=== PATIENT | female | born 1985 | race Caucasian/White ===

== ENCOUNTER → 2018-06-22 14:23 | Emergency (ER) | payer BC ==
--- NOTE | 2018-06-22 15:20 | ED ---
Back Pain - HPI Summary HPI Summary: Patient is a 33-year-old female presenting to the ED with left buttocks pain radiating down the posterior leg into the foot. She denies any weakness to the foot. Symptoms have been present times a proximal 0.1 0.5 weeks and has been intermittent. Symptoms are worse with standing, better with sitting or walking. She denies any bladder or bowel dysfunction. She denies any fevers, sweats, chills or IV drug use. She denies any abdominal pain at this time. She states she feels otherwise well. Pain is currently rated a 7/10 and is a "burning" sensation. She states she feels shocks go down her posterior leg. She denies any groin pain. She denies any urinary symptoms. - History of Current Complaint Chief Complaint: EDBackInjuryPain Stated Complaint: LOWER BACK/LEG PAIN Time Seen by Provider: 06/22/18 14:35 Hx Obtained From: Patient Onset/Duration: Sudden Onset Onset/Duration: Started Weeks Ago Timing: Constant Back Pain Location: Is Discrete @ - left sided buttocks pain radiating to the L posterior leg Severity Initially: Moderate Severity Currently: Moderate Pain Intensity: 9 Pain Scale Used: 0-10 Numeric Character: Aching Aggravating Symptom(s): Movement Alleviating Symptom(s): Rest, Position Associated Signs And Symptoms: Positive: Negative. Negative: Swelling, Redness , Bruising - Risk Factors AAA Risk Factors: Negative TAD Risk Factors: Negative Cauda Equina Risk Factors: Negative Epidural Abscess Risk Factors: Negative - Allergies/Home Medications Allergies/Adverse Reactions: Allergies Allergy/AdvReac Type Severity Reaction Status Date / Time Sulfa (Sulfonamide Allergy Hives Verified 06/22/18 14:32 Antibiotics) Home Medications: Home Medications Quetiapine Fumarate [Seroquel 50 mg tab] 50 mg PO BEDTIME 06/22/18 [History Confirmed 06/22/18] clonazePAM [Clonazepam] 1 mg PO TID PRN 06/22/18 [History Confirmed 06/22/18] PMH/Surg Hx/FS Hx/Imm Hx Previously Healthy: Yes - Immunization History Hx Pertussis Vaccination: No Immunizations Up to Date: Yes Infectious Disease History: No Infectious Disease History: Denies: Traveled Outside the [place] in Last 30 Days - Social History Occupation: Employed Full-time Lives: With Family Alcohol Use: None Hx Substance Use: Yes Substance Use Type: Reports: Marijuana Hx Tobacco Use: No Smoking Status (MU): Never Smoked Tobacco Review of Systems Constitutional: Negative Negative: Fever, Chills, Fatigue, Skin Diaphoresis Negative: Dental Pain Negative: Palpitations, Chest Pain Negative: Abdominal Pain, Vomiting, Diarrhea Genitourinary: Negative Positive: no symptoms reported, see HPI Negative: Decreased ROM, Edema, Other - pain to the left buttocks Skin: Negative Neurological: Other - pain to the left buttocks radiating down the left leg into the foot Negative: Weakness, Paresthesia, Numbness All Other Systems Reviewed And Are Negative: Yes Physical Exam Triage Information Reviewed: Yes Vital Signs On Initial Exam: Initial Vitals Temp Pulse Resp BP Pulse Ox 98.8 F 121 16 140/97 99 06/22/18 14:28 06/22/18 14:28 06/22/18 14:28 06/22/18 14:28 06/22/18 14:28 Vital Signs Reviewed: Yes Appearance: Positive: Well-Appearing, Well-Nourished Skin: Positive: Warm, Skin Color Reflects Adequate Perfusion Head/Face: Positive: Normal Head/Face Inspection Eyes: Positive: EOMI, Conjunctiva Clear Neck: Positive: Supple, No Lymphadenopathy Respiratory/Lung Sounds: Positive: Clear to Auscultation, Breath Sounds Present Cardiovascular: Positive: RRR, Pulses are Symmetrical in both Upper and Lower Extremities Musculoskeletal: Positive: Pain @ - Left buttocks pain radiating down to the left posterior leg Neurological: Positive: Sensory/Motor Intact, Alert, Oriented to Person Place, Time, Normal Gait, Speech Normal Psychiatric: Positive: Normal, Affect/Mood Appropriate AVPU Assessment: Alert Diagnostics - Vital Signs Vital Signs Temp Pulse Resp BP Pulse Ox 06/22/18 14:28 98.8 F 121 16 140/97 99 - Laboratory Lab Statement: Any lab studies that have been ordered have been reviewed, and results considered in the medical decision making process. Back Pain Course/Dx - Course Course Of Treatment: During this course of treatment, the patient is evaluated for left-sided buttocks pain which is radiating down the posterior leg into the foot. This is remained intermittent 1.5 weeks until the past 2 days which has remained constant. She's been taking Tylenol and ibuprofen without relief. She is having pain directly over the sciatic notch, this is better with massage and worse with standing straight. Better with sitting. She denies any bladder or bowel dysfunction. She denies any urinary symptoms otherwise. Denies any abdominal pain. She denies any fevers. At this time she'll be prescribed prednisone, Flexeril, tramadol and is encouraged to continue to take Tylenol and ibuprofen for discomfort. She understands not to take the Flexeril or the tramadol simultaneously. She is also given information on gentle stretches. She is given a note for work. She is diagnosed with sciatica. - Diagnoses Differential Diagnosis/HQI/PQRI: Positive: Other - piriformis syndrome, lumbar radiculopathy, buttocks pain Provider Diagnoses: Sciatica Discharge - Sign-Out/Discharge Documenting (check all that apply): Patient Departure Patient Received Moderate/Deep Sedation with Procedure: No - Discharge Plan Condition: Stable Disposition: HOME Prescriptions: Cyclobenzaprine TAB* [Flexeril TAB*] 10 mg PO BID PRN #10 tab PRN Reason: Spasms predniSONE TAB* [Deltasone TAB*] 50 mg PO DAILY #5 tab MDD 1 traMADol TAB* [Ultram*] 50 mg PO Q8H PRN #15 tab MDD 3 PRN Reason: Pain Patient Education Materials: Sciatica (ED), Lumbar Radiculopathy (ED), Lower Back Exercises (ED) Forms: *Work Release Referrals: No Primary Care Phys,NOPCP [Primary Care Provider] - Additional Instructions: Prednisone once daily 5 days Flexeril twice daily as needed for muscle spasms Tramadol may be used up to 3 times daily for pain Do not take this simultaneously with Flexeril, allow approximately 3 hours between each medication Continue to take Tylenol 650 mg 3 times daily and ibuprofen 600mg 3 times daily Gentle stretches and heat Tennis ball massage - Billing Disposition and Condition Condition: STABLE Disposition: Home
[2018-06-22 15:23] VITALS: BP 134/83
== END | disposition home or self-care (01) ==
LOC: ED 14:23
DX: M54.30 Sciatica, unspecified side (principal); Z88.2 Allergy status to sulfonamides
CPT/HCPCS: 99282